=== PATIENT | male | born 1940 | race Caucasian/White ===

== ENCOUNTER 2021-04-17 05:42 | Emergency (ER) | payer MEDICARE ==
[2021-04-17 05:53] VITALS: TEMP 98.7
--- NOTE | 2021-04-17 06:45 | XR ---
EXAMINATION TYPE: XR chest 2V DATE OF EXAM: 04/17/2021 COMPARISON: NONE HISTORY: Short of breath TECHNIQUE: 2 views FINDINGS: Heart and mediastinum are normal. Lungs are clear. Diaphragm is normal. Bony thorax is inta ct. IMPRESSION: Normal chest.
[2021-04-17] MEDS ORDERED: SOTROVIMAB (EUA) 500 MG in SODIUM CHLORIDE 0.9% 100 ML IVPB ONE (07:00)
[2021-04-17] MEDS ORDERED: SODIUM CHLORIDE 0.9% 50 ML IVPB ONE (07:00)
--- NOTE | 2021-04-17 07:20 | ED ---
General Adult HPI - General Chief complaint: Upper Respiratory Infection Stated complaint: YELENA, Covid+ Time Seen by Provider: 04/17/21 06:02 Source: patient, family, RN notes reviewed Mode of arrival: ambulatory Limitations: no limitations - History of Present Illness Initial comments: This is an 80-year-old male presents emergency department with chief complaint of COVID-19. Patient states that he serve symptoms a few days ago tested positive. [facility] for monoclonal antibodies. Patient states he has had prior vaccine. Patient denies any chest pain while cough mild chest congestion and body aches. - Related Data Allergies Allergy/AdvReac Type Severity Reaction Status Date / Time No Known Allergies Allergy Verified 04/17/21 05:53 Review of Systems ROS Statement: Those systems with pertinent positive or pertinent negative responses have been documented in the HPI. ROS Other: All systems not noted in ROS Statement are negative. Past Medical History Past Medical History: Hypertension History of Any Multi-Drug Resistant Organisms: None Reported Past Surgical History: Adenoidectomy, Prostate Surgery, Tonsillectomy Past Psychological History: No Psychological Hx Reported Smoking Status: Former smoker Past Alcohol Use History: None Reported Past Drug Use History: None Reported General Exam Limitations: no limitations General appearance: alert, in no apparent distress Head exam: Present: atraumatic, normocephalic, normal inspection Eye exam: Present: normal appearance, PERRL, EOMI. Absent: scleral icterus, conjunctival injection, periorbital swelling ENT exam: Present: normal exam, mucous membranes moist Neck exam: Present: normal inspection, full ROM. Absent: tenderness, meningismus, lymphadenopathy Respiratory exam: Present: normal lung sounds bilaterally. Absent: respiratory distress, wheezes, rales, rhonchi, stridor Cardiovascular Exam: Present: regular rate, normal rhythm, normal heart sounds. Absent: systolic murmur, diastolic murmur, rubs, gallop, clicks Course Vital Signs 04/17/21 05:49 Temperature 98.7 F Pulse Rate 73 Respiratory 26 H Rate Blood Pressure 131/75 O2 Sat by Pulse 95 Oximetry Medical Decision Making - Medical Decision Making Recent x-rays unremarkable. Patient will receive monoclonal antibodies. Patient will be discharged to condition we did discuss return parameters. Disposition Clinical Impression: COVID-19 Disposition: HOME SELF-CARE Condition: Stable Instructions (If sedation given, give patient instructions): Coronavirus Disease 2019 (COVID-19) Additional Instructions: Please return to the Emergency Department if symptoms worsen or any other concerns. Is patient prescribed a controlled substance at d/c from ED?: No Referrals: Demian Shipley DO [Primary Care Provider] - 1-2 days Time of Disposition: 07:20
[2021-04-17 09:49] VITALS: BP 121/72; PULSE 87; RESP 18
== END 2021-04-17 09:05 | disposition home or self-care (01) ==
LOC: EC 05:42
DX: U07.1 COVID-19 (principal); I10 Essential (primary) hypertension; Z87.891 Personal history of nicotine dependence
CPT/HCPCS: 71046; 99283; Q0247

== ENCOUNTER → 2024-02-21 | Outpatient (CLI) | payer MEDICARE ==
--- NOTE | 2024-02-21 18:05 | CT ---
EXAMINATION TYPE: CT brain wo con CT DLP: 1133.3 mGycm, Automated exposure control for dose reduction was used. 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 . Coronal and sagitta l reformats reviewed. FINDINGS: Brain: Extra-axial spaces: No abnormal extra-axial fluid collections. Ventricular system: Within normal limits Cerebral parenchyma: Mild cerebral volume loss which is age appropriate. No acute intraparenchymal he morrhage or mass effect. The lawrence-white junction is well differentiated. Scattered hypoattenuating a reas are seen within the periventricular white matter. Cerebellum: Unremarkable. Mass effect: No evidence of midline shift. Intracranial vasculature: Atherosclerotic calcifications of the intracranial vessels. Soft tissues: Normal. Calvarium/osseous structures: No depressed skull fracture. Paranasal sinuses and mastoid air cells: Clear Visualized orbits: Right aphakia IMPRESSION: 1. No acute intracranial process. No hydrocephalus. 2. Mild to moderate diffuse age-related cerebral atrophy which is increased from 2016 exam. 3. Increased nonspecific white matter changes, likely secondary to chronic small vessel ischemic dis ease. [facility], , 02/21/2024 6:02 PM
== END | disposition home or self-care (01) ==
LOC: RADCTMAIN 15:09
PROVIDERS: ATTEND Family Medicine
DX: G91.2 (Idiopathic) normal pressure hydrocephalus (principal); R29.6 Repeated falls
CPT/HCPCS: 70450